=== PATIENT | male | born 1985 | race African-American/Black ===

== ENCOUNTER 2019-04-19 09:36 | Emergency (ER) | payer MEDICAID, OTHER ==
[~2019-04-19] VITALS: Ht 188 cm; Wt 84.8 kg
[2019-04-19] MEDS ORDERED: AZITHROMYCIN 250 MG TAB PO ONE (11:30)
[2019-04-19] MEDS ORDERED: cefTRIAXone SODIUM 250 MG VL IM ONE (11:30)
[2019-04-19] MEDS ORDERED: cefTRIAXone SOD 500 MG VL ONE (12:09)
[2019-04-19 12:16] VITALS: BP 119/35
== END 2019-04-19 12:18 | disposition home or self-care (01) ==
LOC: ER 09:41
DX: Z20.2 Contact with and (suspected) exposure to infections with a predominantly sexual mode of transmission (principal); Z70.8 Other sex counseling
CPT/HCPCS: 96372; 99283; J0696